=== PATIENT | female | born 1995 ===

== ENCOUNTER 2016-08-01 14:53 | Emergency (ER) | payer OTHER ==
[2016-08-01 15:02] VITALS: O2SAT 100
[2016-08-01 15:27] LABS: RBC URINE 39 /hpf (0-3); URINE BILIRUBIN NEGATIVE (NEGATIVE); URINE BLOOD 2+ (NEGATIVE); URINE COLOR Yellow (YELLOW); URINE GLUCOSE (UA) NORMAL (Normal); URINE KETONE 2+ mg/dL (NEGATIVE); URINE LEUKOCYTE ESTERASE TRACE Leu/uL (Negative); URINE PROTEIN 1+ mg/dL (NEGATIVE); URINE UROBILINOGEN NORMAL mg/dL (0.2-1.0); WBC URINE 3 /hpf (0-5)
[2016-08-01] MEDS ORDERED: Sodium Chloride 0.9% 1,000 ML IV ONE (16:11)
[2016-08-01] MEDS ORDERED: Sodium Chloride 0.9% 1,000 ML ONE (16:33)
[2016-08-01 16:37] LABS: BASO % 0.5 % (0.0-2.0); EOS % 0.4 % (0.0-4.0); HEMATOCRIT 40.5 % (34.0-47.0); LYMPH # 1.8 K/uL (1.0-4.3); MEAN CORPUSCULAR HEMOGLOBIN 29.1 pg (27.0-31.0); MEAN CORPUSCULAR HGB CONC 33.9 g/dL (33.0-37.0); MEAN PLATELET VOLUME 7.8 fL (7.2-11.7); MONO # 0.8 K/uL (0.0-0.8); MONO % 8.4 % (0.0-10.0); RED CELL DISTRIBUTION WIDTH 13.3 % (11.5-14.5); WHITE BLOOD COUNT 9.5 K/uL (4.8-10.8)
[2016-08-01 17:47] VITALS: RESP 18
[2016-08-01 17:47] LABS: CHLORIDE 99 mmol/L (98-107); SODIUM 137 mmol/L (132-148)
[2016-08-01 17:48] LABS: POTASSIUM 3.8 mmol/L (3.6-5.2)
[2016-08-01 17:50] LABS: ALB/GLOB RATIO 1.6 (1.0-2.1); ALKALINE PHOSPHATASE 65 U/L (38-126); ALT/SGPT 22 U/L (9-52); AST/SGOT 23 U/L (14-36); BILIRUBIN,TOTAL 0.5 mg/dL (0.2-1.3); BLOOD UREA NITROGEN 12 mg/dL (7-17); CARBON DIOXIDE 18 mmol/L (22-30); GFR AFRICAN-AMERICAN > 60; GLUCOSE,RANDOM 82 mg/dL (65-105); TOTAL PROTEIN 7.4 g/dL (6.3-8.3)
--- NOTE | 2016-08-01 17:58 | C.PDOC ---
Time Seen by Provider: 08/01/16 15:56 History Per: Patient Onset/Duration Of Symptoms: Days (about 1 week) Current Symptoms Are (Timing): Still Present Severity: Moderate Location Of Pain/Discomfort: Suprapubic Radiation Of Pain To:: None Quality Of Discomfort: Unable To Describe Associated Symptoms: Nausea, Vomiting Exacerbating Factors: None Alleviating Factors: None Additional History Per: Prior Records Abnormal Vaginal Bleeding: No Last Menstral Period: June 22, 2016 : 1 Para: 0 Miscarriage: 0 Past Medical History Reviewed: Historical Data, Nursing Documentation, Vital Signs Vital Signs: Last Vital Signs Temp 98 F 08/01/16 14:57 Pulse 84 08/01/16 17:46 Resp 18 08/01/16 17:46 BP 94/60 L 08/01/16 17:46 Pulse Ox 100 08/01/16 17:58 - Medical History PMH: No Chronic Diseases Surgical History: No Surg Hx Family History: States: Unknown Family Hx - Social History Hx Tobacco Use: No Hx Alcohol Use: No Hx Substance Use: No Review Of Systems Except As Marked, All Systems Reviewed And Found Negative. Constitutional: Negative for: Fever Cardiovascular: Positive for: Light Headedness (Syncopized 1 week ago?). Negative for: Chest Pain, Palpitations Respiratory: Negative for: Shortness of Breath, Hemoptysis Gastrointestinal: Positive for: Abdominal Pain (resolved). Negative for: Melena , Hematochezia, Hematemesis Genitourinary: Negative for: Dysuria, Vaginal Discharge, Vaginal Bleeding Musculoskeletal: Negative for: Neck Pain, Back Pain Skin: Negative for: Rash Neurological: Negative for: Weakness, Numbness, Seizures, Altered Mental Status , Headache Physical Exam - Physical Exam Appears: Non-toxic, No Acute Distress Skin: Normal Color, Warm, Dry, No Rash Head: Atraumatic, Normacephalic Eye(s): bilateral: Normal Inspection, PERRL, EOMI Oral Mucosa: Moist Neck: Normal ROM, Supple Cardiovascular: Rhythm Regular Respiratory: Normal Breath Sounds, No Accessory Muscle Use Gastrointestinal/Abdominal: Soft, No Tenderness Back: No CVA Tenderness Extremity: Normal ROM, No Pedal Edema, No Calf Tenderness Neurological/Psych: Oriented x3, Normal Motor, Normal Sensation ED Course And Treatment - Laboratory Results Result Diagrams: 08/01/16 16:32 08/01/16 16:32 Urine POC: Positive ECG: Interpreted By Me, Viewed By Me ECG Rhythm: Sinus Rhythm ECG Interpretation: No Acute Changes Rate From EC O2 Sat by Pulse Oximetry: 100 Pulse Ox Interpretation: Normal - CT Scan/US Pelvic US Other Rad Studies (CT/US): Read By Radiologist, Radiology Report Reviewed CT/US Interpretation: Single live IUP at 6 weeks with FHR. No FF. Progress - Interventions Interventions:: Observation, Intravenous fluid - Medications Administered Intravenous: Antiemetic - Data Reviewed Data Reviewed: Lab, Diagnostic imaging, EKG, Old records - Patient Status Patient status: Completely improved - Continuity of Care Discussed patient case with:: Patient, Family-HIPPA compliant, ED Nurse - Patient Plan Patient Plan: Discharge, F/U with PCP Disposition Counseled Patient/Family Regarding: Studies Performed, Diagnosis, Need For Followup, Rx Given - Disposition Disposition: HOME/ ROUTINE Disposition Time: 20:02 Condition: IMPROVED Additional Instructions: Drink plenty of fluids. Follow up with you [facility] doctor. Return to the ER if you develop vaginal bleeding, abdominal pain, not tolerating fluids, worsening of symptoms or if you have any other concerns. Prescriptions: Vit Calc,Iron,Folic [ Vitamins] 1 tab PO DAILY #30 tablet Metoclopramide [Reglan] 5 mg PO TID PRN #15 tab PRN Reason: Nausea/Vomiting Instructions: (ED) Print Language: MALAGASY - Clinical Impression Clinical Impression: Episode of syncope, Nausea and vomiting during
[2016-08-01 20:14] VITALS: BP 103/68; PULSE 90; TEMP 98.5
--- NOTE | 2016-08-02 10:24 | US ---
Indication: Rule out ectopic, pain Comparison: None available Technique: Real-time transabdominal pelvic ultrasound was performed. In addition a transvaginal pelvic ultrasound was necessary to better depict pelvic anatomy Findings: The uterus measures approximately 8.3 x 4.7 x 6.6 cm. Retroverted. Cervix length measures approximately 3.4 cm. There is a single intrauterine fetus present. 2 mm yolk sac. The gestational sac measures 1.8 cm and is compatible with a gestational age of 6 weeks 1 day. The crown-rump length measures 0.5 cm and is compatible with a gestational age of 6 weeks 1 day. There is heart motion which measured 113.4 BPM. The right ovary measures 2.3 x 1.8 x 2.5 cm. The left ovary measures 3.2 x 2.1 x 3.7 cm. Blood flow was demonstrated to both ovaries. Impression: Live single intrauterine with estimated gestational age 6 weeks 1 day. heart rate bpm. Advise an anomaly screen at 16-18 weeks gestational age Preliminary impression was provided by virtual radiologic.
--- NOTE | 2016-08-02 12:04 | CARD ---
APPROVED REPORT EKG Measurement Heart [id number] NM 126P55 [id number] <Conclusion> Normal sinus rhythm Normal ECG
== END 2016-08-01 20:34 | disposition home or self-care (01) ==
LOC: C.ER 14:53
DX: O21.0 Mild hyperemesis gravidarum (principal); R55 Syncope and collapse; Z3A.01 Less than 8 weeks gestation of pregnancy
CPT/HCPCS: 76805; 76817; 80053; 81001; 84702; 84703; 85025; 93005; 96361; 96374; 99285; J2765; J7040

== ENCOUNTER 2016-08-05 21:34 | Emergency (ER) | payer OTHER ==
[2016-08-05 23:07] LABS: BASO % 0.3 % (0.0-2.0); EOS # 0.1 K/uL (0.0-0.7); EOS % 1.3 % (0.0-4.0); LYMPH # 2.7 K/uL (1.0-4.3); LYMPH % 25.9 % (20.0-40.0); MEAN CELL VOLUME 86.2 fL (81.0-99.0); MEAN CORPUSCULAR HGB CONC 33.6 g/dL (33.0-37.0); MEAN PLATELET VOLUME 8.1 fL (7.2-11.7); MONO % 9.6 % (0.0-10.0); RED CELL DISTRIBUTION WIDTH 13.2 % (11.5-14.5); WHITE BLOOD COUNT 10.5 K/uL (4.8-10.8)
[2016-08-05 23:12] LABS: RBC URINE 1201 /hpf (0-3); URINE BACTERIA OCC (<OCC); URINE BILIRUBIN NEGATIVE (NEGATIVE); URINE BLOOD 3+ (NEGATIVE); URINE COLOR Yellow (YELLOW); URINE GLUCOSE (UA) NORMAL (Normal); URINE KETONE 2+ mg/dL (NEGATIVE); URINE LEUKOCYTE ESTERASE NEG Leu/uL (Negative); URINE PROTEIN 1+ mg/dL (NEGATIVE); URINE UROBILINOGEN NORMAL mg/dL (0.2-1.0); WBC URINE 5 /hpf (0-5)
[2016-08-05 23:15] LABS: CHLORIDE 100 mmol/L (98-107); SODIUM 135 mmol/L (132-148)
[2016-08-05 23:16] LABS: POTASSIUM 3.5 mmol/L (3.6-5.2)
[2016-08-05 23:18] LABS: ALB/GLOB RATIO 1.7 (1.0-2.1); ALKALINE PHOSPHATASE 55 U/L (38-126); ALT/SGPT 20 U/L (9-52); AST/SGOT 21 U/L (14-36); BILIRUBIN,TOTAL 0.3 mg/dL (0.2-1.3); BLOOD UREA NITROGEN 10 mg/dL (7-17); CARBON DIOXIDE 23 mmol/L (22-30); GFR AFRICAN-AMERICAN > 60; GLUCOSE,RANDOM 84 mg/dL (65-105); TOTAL PROTEIN 6.8 g/dL (6.3-8.3)
[2016-08-05 23:19] LABS: CALCIUM 8.8 mg/dl (8.6-10.4)
--- NOTE | 2016-08-05 23:42 | C.PDOC ---
History Of Present Illness 20 y/o female presents to ED for abdominal pain and vaginal bleeding. Patient was previously in this ED on 08/01/16 for nausea and lightheadedness which she states is currently resolved. Patient denies fever, chills, N/V/D, back pain or any other complaints. Time Seen by Provider: 08/05/16 22:20 Chief Complaint (Nursing): Female Genitourinary History Per: Patient History/Exam Limitations: no limitations Onset/Duration Of Symptoms: Days Current Symptoms Are (Timing): Still Present Severity: Mild Quality Of Discomfort: Aching Associated Symptoms: denies: Fever, Chills, Nausea, Vomiting, Diarrhea Recent travel outside of the [place]: No Additional History Per: Patient Abnormal Vaginal Bleeding: Yes Past Medical History Reviewed: Historical Data, Nursing Documentation, Vital Signs Vital Signs: Last Vital Signs Temp 97.8 F 08/06/16 01:08 Pulse 75 08/06/16 01:08 Resp 16 08/06/16 01:08 BP 94/55 L 08/06/16 01:08 Pulse Ox 96 08/06/16 01:40 Family History: States: Unknown Family Hx - Social History Hx Tobacco Use: No Hx Alcohol Use: No Hx Substance Use: No Review Of Systems Except As Marked, All Systems Reviewed And Found Negative. Constitutional: Negative for: Fever, Chills Gastrointestinal: Positive for: Abdominal Pain. Negative for: Nausea, Vomiting , Diarrhea Physical Exam - Physical Exam Additional Physical Exam Comments: Constitutional: No acute distress. Head: Normocephalic. Atraumatic. Eyes: PERRL. ENT: Moist mucous membranes. Neck: Supple. Cardiovascular: Regular rate. Chest: No tenderness. Respiratory: Clear to auscultation bilaterally. GI: Soft. Nontender. Nondistended. Back: No CVA tenderness. Musculoskeletal: No tenderness or swelling of extremities. Skin: No rash. Neurologic: Alert, no focal deficit. ED Course And Treatment - Laboratory Results Result Diagrams: 08/05/16 23:02 08/05/16 23:02 O2 Sat by Pulse Oximetry: 96 (room air ) Pulse Ox Interpretation: Normal Medical Decision Making Medical Decision Making: FINDINGS: Gestation: A single intrauterine gestation is identified with a crown-rump length measuring 8.9 mm, corresponding to an approximate gestational age of 6 weeks and 6 days. cardiac activity is identified a rate of 134 beats per minute. A yolk sac is present, but is somewhat thickened. Placenta/amniotic fluid: Cannot be adequately evaluated due to the early gestational age. Uterus/cervix: A large (likely) implantation hemorrhage is present measuring 5.2 cm in greatest dimension. Ovaries: Despite prolonged interrogation, neither ovary was visualized. Free fluid: Simple free fluid is identified within the posterior cul-de-sac. IMPRESSION: Single intrauterine gestation with an approximate gestational age of 6 weeks and 6 days. Large (likely) implantation hemorrhage measuring 5.2 cm in greatest dimension. This represents a significant change from previous examination performed 4 days earlier. Disposition - Disposition Disposition: HOME/ ROUTINE Disposition Time: 12:39 Condition: STABLE Instructions: Subchorionic Hemorrhage (ED) - Clinical Impression Clinical Impression: Subchorionic hemorrhage in first trimester - PA / STEEL WELDER / Resident Statement MD/DO has reviewed & agrees with the documentation as recorded. - Scribe Statement The provider has reviewed the documentation as recorded by the Rodri Mclean All medical record entries made by the Rodri were at my direction and personally dictated by me. I have reviewed the chart and agree that the record accurately reflects my personal performance of the history, physical exam, medical decision making, and the department course for this patient. I have also personally directed, reviewed, and agree with the discharge instructions and disposition.
[2016-08-06 01:09] VITALS: BP 94/55; PULSE 75; RESP 16; TEMP 97.8
[2016-08-06 01:36] VITALS: O2SAT 96
--- NOTE | 2016-08-06 11:11 | US ---
Indication: vaginal bleeding, assess cervix Comparison: 1st trimester ultrasound performed 08/01/16 Technique: Transvaginal pelvic ultrasound. Findings: The uterus measures approximately 8.8 x 5.8 x 6.0 cm. Anteverted. Cervix length measures approximately 3 cm. There is a single intrauterine fetus present. The gestational sac measures 2.4 cm and is compatible with a gestational age of 7 weeks 0 days. The crown-rump length measures 0.9 cm and is compatible with a gestational age of 6 weeks 6 days. There is heart motion which measured 134.7 BPM. Large probable subarachnoid hemorrhage measuring approximately 5.2 cm in greatest dimension. Bilateral ovaries were not visualized. Small pelvic free fluid identified within the posterior cul-de-sac. Impression: Interval development of probable large probable subchorionic hemorrhage measuring approximately 5.2 cm in greatest dimension. Single intrauterine gestation with approximate age 6 weeks 6 days by crown-rump length calculation. heart motion 134.7 beats per minute. Preliminary impression was provided by virtual radiologic.
== END 2016-08-06 01:09 | disposition home or self-care (01) ==
LOC: C.ER 21:34
DX: O46.91 Antepartum hemorrhage, unspecified, first trimester (principal); Z3A.01 Less than 8 weeks gestation of pregnancy

== ENCOUNTER 2017-03-12 22:59 | Inpatient (IN) | payer MEDICAID, OTHER ==
[2017-03-12] MEDS ORDERED: Nalbuphine 20 mg/ml Inj (1 ml) IVP PRN (23:30)
[2017-03-12] MEDS ORDERED: Lactated Ringer's 1,000 ML IV SCH (23:30)
--- NOTE | 2017-03-12 23:35 | OBHP ---
Datetime: 03/12/2017 23:29 IP Adm Impression: Term, intrauterine ; Ruptured Membranes IP Admit Plan: Admit to unit Admit Comment, IP Provider: chief complaint-leaking of fluid HPI 21 y/o at 37.4 wg with c/o elaking of fluid since 10pm.denies vaginal bleeidng.denies ctx .reports active moveemnt course care with dr monge in [facility] PMH denies PSH denies OBGYN HX Social hx denies tobacco,alcohol or illciit drug use Exam see exam section A/P 21 y/o at 37.4 wga with PROM.GBS negative -ADMIT -CYTOTEC POX1 -ROUTINE LABS -monitor closely Pelvic Type - PN: Adequate Extremities - PN: Normal Abdomen - PN: Normal Back - PN: Normal Lungs - PN: Normal Heart - PN: Normal Neurologic - PN: Normal General - PN: Normal Amniotic Fluid Color, Provider: Clear Membranes, Provider: Ruptured Contraction Comments Provider: occ Gestation - Est Wks by US: 37.4 Pool Provider: Positive Nitrazine Provider: Positive Ferning Provider: Positive IP Hx Assessment: The History has been Reviewed and is Current EGA AdmitDate IP: 37.4 Vital Signs Provider: Reviewed; Within Normal Limits IP Chief Complaint: Uterine contractions; Suspected ruptured membranes FHR Category Provider Fetus A: Category I Dilatation, Provider: 1 Effacement, Provider: 50 Station, Provider: -2 Genitourinary Exam: Normal DTRs - PN: Normal
[2017-03-13 00:02] LABS: BASO % 0.4 % (0.0-2.0); EOS # 0.1 K/uL (0.0-0.7); EOS % 0.9 % (0.0-4.0); HEMATOCRIT 31.8 % (34.0-47.0); LYMPH % 26.6 % (20.0-40.0); MEAN CELL VOLUME 82.5 fL (81.0-99.0); MEAN CORPUSCULAR HGB CONC 33.9 g/dL (33.0-37.0); MEAN PLATELET VOLUME 7.6 fL (7.2-11.7); MONO # 0.6 K/uL (0.0-0.8); MONO % 7.9 % (0.0-10.0); NRBC % 0.1 % (0.0-2.0); WHITE BLOOD COUNT 7.3 K/uL (4.8-10.8)
[2017-03-13 00:33] LABS: ALKALINE PHOSPHATASE 242 U/L (38-126); ALT/SGPT 32 U/L (9-52); AST/SGOT 21 U/L (14-36); BILIRUBIN,TOTAL 0.3 mg/dL (0.2-1.3); BLOOD UREA NITROGEN 12 mg/dL (7-17); CALCIUM 8.6 mg/dl (8.6-10.4); CARBON DIOXIDE 18 mmol/L (22-30); CHLORIDE 103 mmol/L (98-107); GFR AFRICAN-AMERICAN > 60; GLUCOSE,RANDOM 83 mg/dL (65-105); POTASSIUM 3.4 mmol/L (3.6-5.2); SODIUM 133 mmol/L (132-148); TOTAL PROTEIN 7.2 g/dL (6.3-8.3)
[2017-03-13 00:40] LABS: RBC URINE 10 /hpf (0-3); URINE BACTERIA RARE (<OCC); URINE BILIRUBIN NEGATIVE (NEGATIVE); URINE BLOOD 1+ (NEGATIVE); URINE COLOR Yellow (YELLOW); URINE GLUCOSE (UA) NORMAL (Normal); URINE KETONE NEGATIVE (NEGATIVE); URINE LEUKOCYTE ESTERASE NEG Leu/uL (Negative); URINE PROTEIN NEGATIVE (NEGATIVE); URINE UROBILINOGEN NORMAL mg/dL (0.2-1.0); WBC URINE 1 /hpf (0-5)
[2017-03-13] MEDS ORDERED: Nalbuphine 20 mg/ml Inj (1 ml) ONE (04:52)
[2017-03-13] MEDS ORDERED: Lidocaine 2% Inj (20ml) ONE (08:31)
[2017-03-13] MEDS ORDERED: Benzocaine/Menthol 20%-0.5% Topical Spray (60 ml) TOP PRN (08:43)
[2017-03-13] MEDS ORDERED: Oxycodone/Acetaminophen 5/325 mg Tab PO PRN ×2 (08:43)
[2017-03-13] MEDS ORDERED: Oxytocin 20 units in LR 0 ML IV ONE (10:25)
[2017-03-14 06:26] LABS: BASO % 0.2 % (0.0-2.0); EOS % 0.3 % (0.0-4.0); HEMATOCRIT 25.8 % (34.0-47.0); LYMPH # 2.7 K/uL (1.0-4.3); LYMPH % 21.9 % (20.0-40.0); MEAN CELL VOLUME 83.3 fL (81.0-99.0); MEAN CORPUSCULAR HGB CONC 33.7 g/dL (33.0-37.0); MEAN PLATELET VOLUME 7.4 fL (7.2-11.7); MONO # 1.1 K/uL (0.0-0.8); MONO % 8.7 % (0.0-10.0); NRBC % 0.1 % (0.0-2.0); WHITE BLOOD COUNT 12.3 K/uL (4.8-10.8)
--- NOTE | 2017-03-14 08:02 | OBPPN ---
Datetime: 03/14/2017 08:00 PP Pain Prov: Within normal limits PP Nausea Prov: Denies PP Flatus Prov: Yes PP BM Prov: No PP Breasts Prov: Normal PP Heart Prov: Normal PP Lungs Prov: Normal PP Abdomen/Uterus Prov: Normal PP Lochia Prov: Normal PP Vulva/Perineum Prov: Normal PP CVA Tenderness Prov: Normal PP Extremities Prov: Normal PP C/S Incision Prov: Not Applicable PP Progress Prov: Normal PP Impression Prov: Normal progression PP Plan Prov: Continue present management PP Progress Note Prov: pt seen and examined and reports pian is controlled. pt is ambulating voiding , passign flatus, breats feedign adn deies any heavy vaginal bleeding. pt denies any lightheadnss, di zzyness, CP, OSB VSS PE: GEN NAD AAO x 3 RESP: CTAB?L CVS: RRR< +S1/S2 ABD: Soft, NT/ND, +BS< no guarding, no rebound tendneress, no rigidty FUNDUS: Firm, below level of umbiolucsl VE: minimal lochia , non foul smelling EXT: no calf, tendenrss b/l A/P s/p PPD #1 doing well -f/u am labs -regular diet -encouarge breast feedign and ambulation -cont current managnnet Vital Signs Provider PP: Reviewed; Within Normal Limits
--- NOTE | 2017-03-15 08:53 | OBDS ---
DELIVERY PERSONNEL Nurse Technician Automated Equipment Certified: N/A Delivery Doctor: Toni Rueda MD Scrub Nurse: N/A Bobbin Dumper: Cassie Mendez Anesthesiologist: N/A [place]: N/A MATERNAL INFORMATION Delivery Anesthesia: Local Medications in Delivery: Lidocaine 2% and Pitocin 20units in 1000ml Estimated Blood Loss (ml): 100 Placenta Cultured: No Maternal Complications: None RN Comments: Father of Baby present for delivery. Petra Zamora RN; Deion Mills RN; Agatha Onofre DO (resident) , Gabriela Lowe DO (resident); Newton Jurado DO (resident) present for delivery. Provider Comments: Uncomplicated vaginal delivery of live female over intact perineum, KATH, w eight 6lb 4oz, 's 9/9. placed on mother's abdomen. Spontaneous delivery of placenta - grossly intact, 3 vessel cord Uterine exploration performed - uterus firm. Cervix, vagina, perineum inspected - 1st degree perineal laceration noted and repaired, as above. Patient tolerated procedure well; she, father and infant bonding; mother and in stable cond ition LABOR SUMMARY EDC: 03/29/2017 00:00 No. Babies in Womb: 1 Attempted: No Labor Anesthesia: IV Sedation LABOR INFORMATION Reason for Induction: Not Applicable Onset of Labor: 03/12/2017 22:20 Complete Dilatation: 03/13/2017 07:15 Cervical Ripening Agents: Cytotec @ Oxytocin: N/A Group B Beta Strep: Negative Antibiotics # of Doses: N/A Steroids Given: None Reason Steroids Not Administered: Not Applicable MEMBRANES Membranes Rupture Method: Spontaneous Rupture of Membranes: 03/12/2017 22:20 Length of Rupture (hrs): 9.95 Amniotic Fluid Color: Clear Amniotic Fluid Amount: Scant Amniotic Fluid Odor: Normal STAGES OF LABOR Stage 1 hrs: 8 Stage 1 min: 55 Stage 2 hrs: 1 Stage 2 min: 2 Stage 3 hrs: 0 Stage 3 min: 9 Total Time in Labor hrs: 10 Total Time in Labor min: 6 VAGINAL DELIVERY Episiotomy: None Laceration Extension: First Degree Laceration Type: Perineal Laceration Repair: Yes Laceration Repair Note: 3-0 chromic - in routine fashion. Hemostasis assured. Patient tolerated proc edure well. Initial Vag Sponge Count: 10 Final Vag Sponge Count: 10 Initial Vag Sharps Count: 1 Final Vag Sharps Count: 1 Sponge Count Correct: Yes; Vaginal Sweep Performed Sharps Count Correct: Yes Count Comment: correct BABY A INFORMATION Delivery Date/Time: 03/13/2017 08:17 Method of Delivery: Vaginal Born in Route : No : N/A Forceps: N/A Vacuum Extraction: N/A Shoulder Dystocia : No SHOULDER DYSTOCIA BABY A Infant Delivery Date/Time: 03/13/2017 08:17 PRESENTATION/POSITION BABY A Presentation: Cephalic Cephalic Presentation: Vertex Vertex Position: Left Occipital Anterior Breech Presentation: N/A PLACENTA INFORMATION BABY A Placenta Delivery Time : 03/13/2017 08:26 Placenta Method of Delivery: Spontaneous Placenta Status: Delivered SCORES BABY A Heart Rate 1 min: >100 bpm Resp Effort 1 min: Good Cry Reflex Irritability 1 min: Cough or Sneeze or Pulls Away Muscle Tone 1 min: Active Motion Color 1 min: Body [place], Extremities Blue Resuscitation Effort 1 min: Tactile Stimulation SCORE 1 MIN: 9 Heart Rate 5 min: >100 bpm Resp Effort 5 min: Good Cry Reflex Irritability 5 min: Cough or Sneeze or Pulls Away Muscle Tone 5 min: Active Motion Color 5 min: Body [place], Extremities Blue Resuscitation Effort 5 min: N/A SCORE 5 MIN: 9 INFANT INFORMATION BABY A Gestational Age at Delivery: 37.5 Gestational Status: Term Infant Outcome : Liveborn Infant Condition : Stable Infant Sex: Female IDENTIFICATION/MEDS BABY A ID Band Number: [id number] ID Band Location: Left Leg; Left Arm Sensor Applied: Yes Sensor Number: [id number] Sensor Location : Cord Clamp WEIGHT/LENGTH BABY A Birthweight (gms): 2830 Infant Weight (lb): 6 Weight (oz): 4 Infant Length Inches: 18.50 Infant Length cms: 47.0 CORD INFORMATION BABY A No. Cord Vessels: 3 Nuchal Cord : N/A Cord Blood Taken: Yes Infant Suction: Mouth; Nose ASSESSMENT BABY A Infant Complications: Multiple Variable Decels Physical Findings at Delivery: Within Normal Limits Respirations: Appears Normal Technical Asst/ALS Called : No Infant Care By: Elias Zamora RN Transferred To: Remains with Mother
--- NOTE | 2017-03-15 09:00 | OBPPN ---
Datetime: 03/15/2017 08:52 PP Pain Prov: Within normal limits PP Nausea Prov: Denies PP Flatus Prov: Yes PP BM Prov: Yes PP Breasts Prov: Normal PP Heart Prov: Normal PP Lungs Prov: Normal PP Abdomen/Uterus Prov: Normal PP Lochia Prov: Normal PP Vulva/Perineum Prov: Not Done PP CVA Tenderness Prov: Normal PP Extremities Prov: Normal PP C/S Incision Prov: Not Applicable PP Progress Prov: Normal PP Comments Phys Exam Prov: Abdomen: Soft. non distended. Fundus firm, mobile, non tender. 18 weeks. mild lochia rubra Extremties: no calf tenderness All other systems reviewed and are negative PP Impression Prov: Normal progression PP Plan Prov: Discharge PP Progress Note Prov: Patient received in bed, room 453, eating breakfast. exclusive ly. Voiding and ambulating without difficulty. Denies [place], dizziness, lightheadedness, nausea or vomi ting. P.E.: as above. WD in NAD. Awake, alert, oriented to time, person and place. Pleasant and cooperat lester. - POD#1 H/H 8.7/25.8. Rh(+) Assessment: PPD#2, 21 y.o. P1, S/P . Afebrile, vital signs stable. Chronic anemia - asymptomat ic and hemodynamically stable. Undecided re: contraception. Clinically stable. Plan: 1) Dsicharge home 2) See full discharge instructions Vital Signs Provider PP: Reviewed; Within Normal Limits
--- NOTE | 2017-03-15 09:03 | OBDCSUM ---
Datetime: 03/15/2017 09:00 Discharged to, Provider: Home Follow up at, Provider: Clinic Disch Instr Activity: May be up to bathroom; May be up for meals; May Shower Disch Instr Diet: Regular Discharge Instructions, Provider: Routine instructions given Discharge Diagnosis, Provider: Term Delivered Follow up in weeks, Provider: 6 weeks Contraception discussed, Prov: Yes Disch Activity Restrictions: No lifting; No sexual activity; Nothing in vagina - [place], tampon s, douche Discharge Diagnosis Prov Other: Chronic anemia Contraception counseling Contraception after Delivery: Undecided
[2017-03-15 09:52] VITALS: BP 103/66; PULSE 94; RESP 18; TEMP 98.2; O2SAT 100
== END 2017-03-15 14:00 | disposition home or self-care (01) | DRG 775 ==
LOC: C.EROB 22:59 → C.4D 23:30 → C.4M 03-13 10:47
PROVIDERS: ADMIT Student in an Organized Health Care Education/Training Program; ATTEND Student in an Organized Health Care Education/Training Program
PROC: 10E0XZZ Delivery of Products of Conception, External Approach (ICD-10-PCS; principal; 2017-03-12)
PROC: 0HQ9XZZ Repair Perineum Skin, External Approach (ICD-10-PCS; 2017-03-12)
DX: O99.02 Anemia complicating childbirth (principal); O76 Abnormality in fetal heart rate and rhythm complicating labor and delivery; O70.0 First degree perineal laceration during delivery; Z3A.37 37 weeks gestation of pregnancy; Z37.0 Single live birth